=== PATIENT | male | born 1970 | race Caucasian/White ===

== ENCOUNTER 2017-11-07 18:03 | Emergency (ER) | payer OTHER ==
[~2017-11-07] VITALS: Ht 180.3 cm; Wt 95.2 kg
[~2017-11-07 18:03] MED LIST: Z.0.NO CURRENT MEDS
[2017-11-07 18:10] VITALS: BP 184/104; PULSE 80; RESP 16; TEMP 98.5; O2SAT 98
[2017-11-07] MEDS ORDERED: ONDANSETRON ODT 4 MG TAB PO/SL ONE (18:30)
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
[2017-11-07] MEDS ORDERED: NAPR500 PO (19:58)
[2017-11-07] MEDS ORDERED: CYCL10TA PO (19:58)
== END 2017-11-07 20:09 | disposition home or self-care (01) ==
LOC: PHEFT 18:03
DX: S16.1XXA Strain of muscle, fascia and tendon at neck level, initial encounter (principal); S00.83XA Contusion of other part of head, initial encounter; S20.212A Contusion of left front wall of thorax, initial encounter; S39.012A Strain of muscle, fascia and tendon of lower back, initial encounter; G44.319 Acute post-traumatic headache, not intractable; V43.52XA Car driver injured in collision with other type car in traffic accident, initial encounter
CPT/HCPCS: 70450; 70486; 71101; 72125; 94150; 99284